=== PATIENT | male | born 1960 | race Caucasian/White ===

== ENCOUNTER 2019-01-22 11:30 | Outpatient (CLI) | payer BC ==
--- NOTE | 2019-01-22 11:58 | RAD ---
LUMBAR SPINE 2 VIEWS: HISTORY: Sciatica, left side. Low back pain FINDINGS: There are multilevel degenerative changes. There is grade 1/2 anterolisthesis of L4 over L5 vertebral bodies. No compression fracture or bony destruction is seen.
== END 2019-01-22 11:31 | disposition home or self-care (01) ==
LOC: BICRAD 11:30
PROVIDERS: ATTEND Physician Assistant Medical
DX: M54.32 Sciatica, left side (principal); M47.816 Spondylosis without myelopathy or radiculopathy, lumbar region; M43.16 Spondylolisthesis, lumbar region
CPT/HCPCS: 72100

== ENCOUNTER 2021-03-11 11:03 | Outpatient (CLI) | payer BC | END 2021-03-11 11:04 | disposition home or self-care (01) | LOC: BICRAD 11:03 | PROVIDERS: ATTEND Nurse Practitioner Primary Care | DX: R06.00 Dyspnea, unspecified (principal); K44.9 Diaphragmatic hernia without obstruction or gangrene | CPT/HCPCS: 71046 ==

== ENCOUNTER 2023-05-29 09:41 | Outpatient (CLI) | payer BC | END 2023-05-29 09:42 | disposition home or self-care (01) | LOC: BICRAD 09:41 | PROVIDERS: ATTEND Nurse Practitioner Family | DX: R20.2 Paresthesia of skin (principal); M47.814 Spondylosis without myelopathy or radiculopathy, thoracic region; M47.812 Spondylosis without myelopathy or radiculopathy, cervical region; K44.9 Diaphragmatic hernia without obstruction or gangrene | CPT/HCPCS: 72040; 72072 ==